=== PATIENT | female | born 1990 | race American Indian/Alaskan Native ===

== ENCOUNTER 2018-09-03 12:11 | Emergency (ER) | payer SELFPAY ==
[2018-09-03 12:30] VITALS: BP 127/79
--- NOTE | 2018-09-03 13:22 | Emergency Department Report ---
ED Upper Extremity Inj HPI - General Chief Complaint: Extremity Injury, Upper Stated Complaint: BROKEN HAND Time Seen by Provider: 09/03/18 12:39 Source: patient Mode of arrival: Ambulatory Limitations: No Limitations - History of Present Illness Initial Comments: Patient is a 28-year-old -[place] Citizen female who comes to the ER today status post ground-level fall. She took her arms and placed him towards her back in an effort to break her fall. However, she subsequently has injured both wrists. She is complaining of pain bilaterally but right greater than left. She is neurovascularly intact. -: Sudden Other Extremity Injury: Wrist: Left, Right Other Injuries: none Handedness: right Place: home Improves With: none Worsens With: movement of extremity Associated Symptoms: denies other symptoms - Related Data Previous Rx's Medication Instructions Recorded Last Taken Type traMADol [Ultram] 50 mg PO Q6HR PRN #10 tablet 09/03/18 Unknown Rx Allergies Allergy/AdvReac Type Severity Reaction Status Date / Time Penicillins Allergy Hives Verified 09/03/18 12:30 ED Review of Systems ROS: Stated complaint: BROKEN HAND Other details as noted in HPI Comment: All other systems reviewed and negative Constitutional: denies: see HPI Eyes: denies: eye pain ENT: denies: ear pain Respiratory: denies: cough Endocrine: denies: excessive sweating Gastrointestinal: denies: nausea Genitourinary: denies: urgency Musculoskeletal: as per HPI, other (BILAT wrist pain) Skin: denies: lesions Neurological: denies: weakness Psychiatric: denies: depression Hematological/Lymphatic: denies: easy bleeding ED Past Medical Hx - Past Medical History Previous Medical History?: No - Surgical History Past Surgical History?: No - Family History Family history: no significant - Social History Smoking Status: Current Every Day Smoker Substance Use Type: Alcohol - Medications Home Medications: Home Medications Medication Instructions Recorded Confirmed Last Taken Type traMADol [Ultram] 50 mg PO Q6HR PRN #10 tablet 09/03/18 Unknown Rx ED Physical Exam - General Limitations: No Limitations General appearance: alert - Head Head exam: Present: atraumatic - Eye Eye exam: Present: normal appearance, PERRL, EOMI - ENT ENT exam: Present: normal exam - Neck Neck exam: Present: normal inspection - Respiratory Respiratory exam: Present: normal lung sounds bilaterally - Cardiovascular Cardiovascular Exam: Present: regular rate - GI/Abdominal GI/Abdominal exam: Present: soft - Rectal Rectal exam: Present: deferred - Expanded Upper Extremity Exam Left Shoulder Exam: Present: normal inspection Upper Arm exam: Present: normal inspection Elbow exam: Present: normal inspection Forearm Wrist exam: Present: normal inspection Hand Wrist exam: Present: tenderness, swelling Vascular: Present: normal capillary refill, radial pulse, brachial pulse, ulnar pulse Right Upper Arm exam: Present: normal inspection Elbow exam: Present: normal inspection Forearm Wrist exam: Present: tenderness, swelling, erythema. Absent: abrasion, laceration, ecchymosis, deformity, crepidus, dislocation, tenderness over anatomical snuff box Hand Wrist exam: Present: normal inspection Vascular: Present: normal capillary refill, radial pulse, brachial pulse, ulnar pulse - Back Exam Back exam: Present: normal inspection, full ROM - Neurological Exam Neurological exam: Present: alert, oriented X3 - Psychiatric Psychiatric exam: Present: normal affect, normal mood - Skin Skin exam: Present: warm, dry, intact ED Course Vital Signs 09/03/18 12:22 Temperature 98.1 F Pulse Rate 84 Respiratory 16 Rate Blood Pressure 127/79 O2 Sat by Pulse 99 Oximetry ED Medical Decision Making - Radiology Data Radiology results: report reviewed, image reviewed FX DISTAL RAD FOSH INJURY - Medical Decision Making FX RADIUS SPLINT ICE DC HOME W ORTHO FOLLOW UP NEUROVASC INTACT BEFORE AND AFTER SPLINT WITH RAPID CAP REFILL, DISTAL MOVEMENT AND SENSATION INTACT. - Differential Diagnosis RO FX Critical care attestation.: If time is entered above; I have spent that time in minutes in the direct care of this critically ill patient, excluding procedure time. ED Disposition Clinical Impression: Fracture, radius, Fall, Contusion Disposition: DC-01 TO HOME OR SELFCARE Is pt being admited?: No Does the pt Need Aspirin: No Condition: Stable Instructions: Arm Fracture in Adults (ED) Additional Instructions: rest ice elevate motrin or tylenol for mild pain ultram for severe pain follow up with ortho call and make appointment for early next week referral below Prescriptions: traMADol [Ultram] 50 mg PO Q6HR PRN #10 tablet PRN Reason: Pain Referrals: PRIMARY CAREMD [Primary Care Provider] - 3-5 Days MEMO AL MD [Staff Physician] - 3-5 Days Time of Disposition: 15:22
--- NOTE | 2018-09-03 13:52 | XRay Report ---
BILATERAL HANDS, 3 VIEWS History: Pain and swelling after fall. Findings: Normal bone mineralization. The bones of the hands and fingers are intact. Subtle nondisplaced fracture lines are identified in the distal radius which extend to the radiocarpal joint. Mild soft tissue swelling of the left hand is suspected. Impression: Fracture, distal right radius. Soft tissue swelling of the left hand.
[2018-09-03] MEDS ORDERED: NORCO 5/325 PO ONE (14:33)
== END 2018-09-03 15:28 | disposition home or self-care (01) ==
LOC: ED 12:11
DX: S52.501A Unspecified fracture of the lower end of right radius, initial encounter for closed fracture (principal); S52.502A Unspecified fracture of the lower end of left radius, initial encounter for closed fracture; F17.200 Nicotine dependence, unspecified, uncomplicated; Z88.0 Allergy status to penicillin; W18.39XA Other fall on same level, initial encounter; Y93.89 Activity, other specified; Y92.098 Other place in other non-institutional residence as the place of occurrence of the external cause; Y99.8 Other external cause status